=== PATIENT | male | born 1975 | race Caucasian/White ===

== ENCOUNTER 2018-06-22 15:49 | Emergency (ER) | payer OTHER ==
[2018-06-22 15:57] VITALS: BP 121/83
[2018-06-22] MEDS ORDERED: PROPARACAINE 0.5% OP 15ML BTL OS ONE (16:05)
[2018-06-22] MEDS ORDERED: DIPHTH/TETANUS/ACEL. PERTUSSIS IM ONLY ONE (16:25)
[2018-06-22] MEDS ORDERED: PROPARACAI/FLUORESCEIN 5 ML OP DROPS OP ONE (16:25)
[2018-06-22] MEDS ORDERED: TOBRAMYCIN 0.3% OP SOLN 5 ML OD ONE (16:30)
--- NOTE | 2018-06-22 16:30 | ER Report ---
History and Physical Time Seen By MD: 16:15 Hx. of Stated Complaint: RIGHT EYE F.O. HPI/ROS CHIEF COMPLAINT: R eye foreign body HISTORY OF PRESENT ILLNESS: Pt here for evaluation of peice of metal in right eye. Pt was working on putting in a skid plate on Friday and a piece of metal got into his right eye. Pt states it did not hurt until friday. Pt saw the metal friday and he attempted to use a magnet to get it out. Pt states pain would come and go. Today was working with wood and thinks some saw dust may have gotten into his eye . Pt states eye is red and tearing. Pt can see the piece of metal on his iris. Pt denies and blurred vision. last tetnus shot was 7 yrs ago. Pt was not wearing eye protection with either activity. REVIEW OF SYSTEMS: EYE: tearing, irritated, fb Allergies: Coded Allergies: No Known Drug Allergies (Unverified , 06/22/18) Home Meds No Active Prescriptions or Reported Meds Past Medical/Surgical History Pmhx: ganglion cyst Pshx: neg Old Medical Records Reviewed: Yes Hx Smoking: No Smoking Status: Never Smoker Hx Substance Use Disorder: No Hx Alcohol Use: Yes (rarely) Constitutional Vital Sign - Last 24 Hours 06/22/18 15:57 Temp 97.7 Pulse 66 Resp 14 B/P (MAP) 121/83 Pulse Ox 95 O2 Delivery Room Air Physical Exam General Appearance: Alert, no distress. Eyes: Pupils equal and round no pallor. Pupils are equal. Right eye has moderate injection. There is no discharge. There is a metal punctate foreign body in right eye at 4 oclock. Fluorescein exam reveals uptake at cornea where the metal was removed. . Slit lamp exam: a puncate piece of metal is identified at 4 oclock on the cornea. Was removed using a qtip wet with alcaine drops. No rust ring was identified after removal. Fluoresein dye uptake at the site of the fb removal. Inverted upper and lower eye lids and no fb identified Skin: Periorbital skin is not inflamed. DIFFERENTIAL DIAGNOSIS: After history and physical exam differential diagnosis was considered for a red eye including but not limited to foreign body,and corneal abrasion. Medical Decision Making ED Course/Re-evaluation ED Course metal FB removed. Pt eye irrigated with nss in case of saw dust that may not have been identified on slit lamp. Pt d/c home on abx drops. Pt is to follow up with opthomology as outpt to recheck eye. tetnus given. Decision to Disposition Date: Jun 22, 2018 Decision to Disposition Time: 16:38 Depart Departure Latest Vital Signs Vital Signs Date Time Temp Pulse Resp B/P (MAP) Pulse Ox O2 Delivery O2 Flow Rate FiO2 06/22/18 15:57 97.7 66 14 121/83 95 Room Air Impression: Primary Impression: Eye foreign body Condition: Stable Disposition: HOME OR SELF-CARE Referrals: BEBE PANIAGUA DO (PCP) TOSHIA HARO OD 2 Days New Scripts No Active Prescriptions or Reported Meds Patient Instructions: Corneal Abrasion (GEN), Eye Foreign Body (ED) Additional Instructions: You had a small piece of metal which was removed. You have a small corneal abrasion where the metal was located. This should heal in a few days. Tobramycin 2 drops in right eye every 2 hours while awake today. Tomorrow you can go down to 2 drops every 4 hours. Continue the drops for 5 days. Follow up with opthomology. Return as needed. Please check to see when you had your last tetnus shot. If it was not in the last 5 years you need a booster. Motrin/tylenol as needed for eye discomfort. This should improve in next 2 days. Problem Qualifiers Primary Impression: Eye foreign body Encounter type: initial encounter Laterality: right Qualified Codes: T15.91XA - Foreign body on external eye, part unspecified, right eye, initial encounter JENNY HERNANDEZ DO Jun 22, 2018 16:30
== END 2018-06-22 16:50 | disposition home or self-care (01) ==
LOC: ER 16:03
DX: T15.91XA Foreign body on external eye, part unspecified, right eye, initial encounter (principal)
CPT/HCPCS: 99283